=== PATIENT | male | born 1980 | race Caucasian/White ===

== ENCOUNTER 2024-10-10 01:28 | Emergency (ER) | payer OTHER, SELFPAY ==
--- NOTE | ~2024-10-10 | XR_ITS ---
CHEST RADIOGRAPH CLINICAL HISTORY: cough . COMPARISON: None available TECHNIQUE: Single portable view of the chest. FINDINGS Cardiomediastinal silhouette is unremarkable. Elevation of the right hemidiaphragm with adjacent compressive atelectasis. The remainder of the lungs are clear. IMPRESSION: No focal infiltrate or effusion. Reviewed, dictated and finalized at location A.
[2024-10-10 01:30] VITALS: BP 129/91; PULSE 106; RESP 16; TEMP 36.4; O2SAT 100
--- NOTE | 2024-10-10 01:37 | ECG_ITS ---
Test Date: 2024-10-10 01:51:27 Measurements Intervals Counce Rate: 91 P: 55 PA: 172 QRS: -14 QRSD: 83 T: 5 QT: 341 QTc: 421 Interpretive Statements SINUS RHYTHM LEFT ATRIAL ENLARGEMENT POSSIBLE LEFT VENTRICULAR HYPERTROPHY MINIMAL Q WAVES- HIGH LATERAL LEADS NONSPECIFIC T-WAVE ABNORMALITY- INFERIOR LEADS BORDERLINE ECG No previous ECG available for comparison Electronically Signed On 10-10-2024 07:34:46 CDT by Doe Lucia D.O.
--- NOTE | 2024-10-10 01:37 | ED.URI ---
HPI - URI/Sore Throat General Chief Complaint: Upper Respiratory Infection Stated Complaint: cough x 3days Time Seen by Provider: 10/10/24 01:37 Source: patient Mode of arrival: ambulatory Limitations: no limitations History of Present Illness HPI Narrative: This is a 44-year-old male who presents to the ED for chief complaint of cough x3 days. Patient states that cough is somewhat productive at times with phlegm. He has not taken any [id number] medications. States that he is having rib pain/back pain from coughing for so long. States that feel short of breath when he coughs. States that his has been sick lately. Denies fevers, chills, abdominal pain, nausea, vomiting, hemoptysis or leg swelling. Related Data Allergies Allergy/AdvReac Type Severity Reaction Status Date / Time No Known Allergies Allergy Verified 10/10/24 01:29 Review of Systems Review of Systems: All systems as dictated in HPI Exam Narrative: GENERAL: Well-appearing, well-nourished, and in no acute distress. HEAD: Normocephalic, atraumatic. EYES: PERRLA and EOMI. ENT: Nares clear, no rhinorrhea or epistaxis. Mucous membranes moist. Oropharynx without tonsillar hypertrophy exudate or other lesions. NECK: Supple. No adenopathy or masses. CHEST: No respiratory distress. Clear to auscultation. No wheezes rales or rhonchi HEART: Regular rate and rhythm. No murmur heard. Normal peripheral pulses. ABDOMEN: Soft, nontender, nondistended, normal active bowel sounds. MSK: Normal range of motion. No edema. SKIN: Warm, dry, no rash. NEURO: Alert and oriented x4. No focal deficits. PSYCH: Normal mood and affect. Course Vital Signs Vital signs: Vital Signs Temperature 97.5 F L 10/10/24 01:30 Pulse Rate 106 H 10/10/24 01:30 Respiratory Rate 16 10/10/24 01:30 Blood Pressure 129/91 H 10/10/24 01:30 Pulse Oximetry 100 10/10/24 01:30 Oxygen Delivery Room Air 10/10/24 01:30 Temperature 97.5 F L 10/10/24 01:30 Pulse Rate 89 10/10/24 02:25 Respiratory Rate 16 10/10/24 02:25 Blood Pressure 130/92 H 10/10/24 02:25 Pulse Oximetry 96 10/10/24 02:26 Oxygen Delivery Room Air 10/10/24 02:26 MDM - URI/Sore Throat MDM Narrative Medical decision making narrative: This is a 44-year-old male who presents to the ED for chief complaint of productive cough. Vitals are normal. Exam unremarkable. He is not hypoxic. No respiratory distress. Lab work does show normal white count. CMP unremarkable. Viral swabs negative. Chest x-ray shows no acute findings. Presentation consistent with viral syndrome and likely bronchitis. Patient will be discharged in stable condition. Supportive measures discussed and return precautions given. Patient is understanding and agreeable with plan for discharge with PCP follow-up. Lab Data 10/10/24 02:23 10/10/24 02:23 Labs: Lab Results 10/10/24 Range/Units 02:23 WBC 6.6 (4.5-10.0) K/mm3 RBC 4.77 (4.6-6.20) M/mm3 Hgb 13.7 L (14.0-18.0) g/dL Hct 41.6 L (42.0-52.0) % MCV 87.2 (80-100) fl MCH 28.7 (26-34) pg MCHC 32.9 (32-36) g/dl RDW 12.9 (11.5-14.5) % Plt Count 222 (150-375) k/mm3 MPV 10.2 (7.4-10.4) fl Immature Gran % (Auto) 0.3 (0-0.5) % Neut % (Auto) 69.7 (45.5-73.1) % Lymph % (Auto) 14.6 L (18.3-44.2) % [place] % (Auto) 13.4 H (2.6-8.5) % Eos % (Auto) 1.5 (0-4.4) % Baso % (Auto) 0.5 (0.2-1.2) % Lymph # (Auto) 0.96 (0.9-3.2) K/mm3 [place] # (Auto) 0.9 H (0.1-0.6) K/mm3 Eos # (Auto) 0.1 (0-0.3) K/mm3 Baso # (Auto) 0.0 (0.0-0.1) K/mm3 Abs Immat Gran (auto) 0.02 (0.00-0.031) K/mm3 Absolute Neuts (auto) 4.6 (1.3-6.7) K/mm3 Absolute Nucleated RBC 0.000 (0.0-0.012) K/mm3 Nucleated RBC % 0.0 (0.0-0.2) % Sodium 139 (137-145) mmol/L Potassium 3.8 (3.4-5.0) mmol/L Chloride 104 (98-107) mmol/L Carbon Dioxide 25 (22-30) mmol/L Anion Gap 10 (4-12) mmol/L BUN 15 (9-20) mg/dL Creatinine 0.72 (0.7-1.3) mg/dL Estim Creat Clear Calc 113 ml/min Estimated GFR > 60 (59 - ) Glucose 96 (65-110) mg/dL Calcium 9.1 (8.4-10.2) mg/dL Total Bilirubin 0.4 (0.2-1.3) mg/dL AST 31 (17-59) U/L ALT 33 (6-50) U/L Alkaline Phosphatase 100 (38-126) U/L Total Protein 7.0 (6.3-8.2) g/dL Albumin 4.4 (3.5-5.1) g/dL Influenza A (RT-PCR) Negative (Negative) Influenza B (RT-PCR) Negative (Negative) RSV (RT-PCR) Negative (Negative) SARS-CoV-2 RNA (RT-PCR) Negative (Negative) Discharge Plan Discharge Clinical Impression: Bronchitis Patient Disposition: Home Condition: Stable Instructions: Antibiotic Form Additional Instructions: Exam and imaging today are reassuring. This is probably bronchitis related to a virus. Take medications as prescribed. Symptoms should self resolve over the next couple of weeks. If you have any new or worsening symptoms please return to the ER for further evaluation. Patient Language: Danish Prescriptions: New guaifenesin 600 mg tablet extended release 12hr 600 mg PO BID PRN (Reason: cough) Qty: 30 0RF methylprednisolone [Medrol (El)] 4 mg tablets,dose pack See Rx Instructions .ROUTE .COMPLEX Qty: 21 0RF Rx Instructions: for 6 days albuterol sulfate [Ventolin HFA] 90 mcg/actuation HFA aerosol inhaler 2 puff inhalation QID PRN (Reason: shortness of breath or wheezing) Qty: 6.7 0RF Follow-up/Referrals: Aaron,MD Feli [Primary Care Provider] - Time of Disposition: 03:24
[2024-10-10 02:25] VITALS: BP 130/92; PULSE 89; RESP 16; O2SAT 99
[2024-10-10 02:26] VITALS: O2SAT 96
[2024-10-10] MEDS: ACETAMINOPHEN/CODEINE (*CRX) 300/30 MG TABLET 1 TAB PO (02:36)
[2024-10-10] MEDS: guaiFENesin 12 HR 600 MG TABCR PO (02:37)
[2024-10-10 02:44] LABS: Basophils Percent Auto 0.5 % (0.2-1.2); Eosinophils Absolute Auto 0.1 K/mm3 (0-0.3); Eosinophils Percent Auto 1.5 % (0-4.4); Hematocrit 41.6 % (42.0-52.0); Hemoglobin 13.7 g/dL (14.0-18.0); Immature Granulocyte Absolute 0.02 K/mm3 (0.00-0.031); Immature Granulocyte Percent A 0.3 % (0-0.5); Lymphocytes Absolute Auto 0.96 K/mm3 (0.9-3.2); Lymphocytes Percent Auto 14.6 % (18.3-44.2); Mean Corpuscular HGB Conc 32.9 g/dl (32-36); Mean Corpuscular Hemoglobin 28.7 pg (26-34); Mean Corpuscular Volume 87.2 fl (80-100); Mean Platelet Volume 10.2 fl (7.4-10.4); Monocytes Absolute Auto 0.9 K/mm3 (0.1-0.6); Monocytes Percent Auto 13.4 % (2.6-8.5); Neutrophils Absolute Auto 4.6 K/mm3 (1.3-6.7); Neutrophils Percent Auto 69.7 % (45.5-73.1); Platelet Count Result 222 k/mm3 (150-375); Red Blood Count 4.77 M/mm3 (4.6-6.20); Red Cell Distribution Width 12.9 % (11.5-14.5); White Blood Count 6.6 K/mm3 (4.5-10.0)
[2024-10-10 03:02] LABS: Alanine Aminotransferase 33 U/L (6-50); Albumin Level 4.4 g/dL (3.5-5.1); Alkaline Phosphatase 100 U/L (38-126); Anion Gap 10 mmol/L (4-12); Aspartate Amino Transferase 31 U/L (17-59); Bilirubin,Total 0.4 mg/dL (0.2-1.3); Blood Urea Nitrogen 15 mg/dL (9-20); Calcium 9.1 mg/dL (8.4-10.2); Carbon Dioxide 25 mmol/L (22-30); Chloride 104 mmol/L (98-107); Estimated CRCL calculation 113 ml/min; Estimated Glomerular Filt Rate > 60; Glucose 96 mg/dL (65-110); Potassium 3.8 mmol/L (3.4-5.0); Sodium 139 mmol/L (137-145)
[2024-10-10 03:19] LABS: Influenza A QL RT-PCR Negative (Negative); Influenza B QL RT-PCR Negative (Negative); RSV RNA, RT-PCR Negative (Negative); SARS-CoV-2 RNA PCR Negative (Negative)
[2024-10-10 03:31] VITALS: BP 124/85; PULSE 87; RESP 15; O2SAT 93
--- OUTSIDE RECORDS SUMMARY | 2024-10-10 03:36 | XMS_ITS | Clinical Summary ---
Author Organization [facility] Address [address] [place] [id number] Care Team Providers [employer] Account Executive Name Role Phone Feli Walker MD Primary Care Provider [phone] Allergies No known active allergies Medications sertraline (ZOLOFT) 100 MG tabletIndicatio ns:Irritable behavior Take 1 tablet (100 mg total) by mouth daily. 90 tablet 3 05/08/2024 Active zolpidem (AMBIEN) 10 MG tabletIndicatio ns:Primary insomnia TAKE 1 TABLET NIGHTLY NEEDED FOR SLEEP 90 tablet 1 05/08/2024 Active Active Problems Problem Noted Date Diagnosed Date Primary insomnia 01/20/2021 Encounters Date Type Department Care Team Description 09/23/2024 Scan [facility] SRVCS Scanned, Doc [facility] from Last 3 Months Immunizations Immunization Administration Dates Next Due PFIZER COVID-19 (12+) MRNA, LNP-S, PF, BG-SUCROSE, 30 MCG/0.3 ML (COMIRNATY) 05/08/2024 PFIZER COVID-19 ([place] CAP), MRNA, LNP-S, PF, 30 MCG/0.3 ML BG-SUCROSE, IM 06/28/2021 PFIZER COVID-19 (ORIGINAL FO RMULATION, PURPLE CAP) mRNA, LNP-S, PF, 30 MCG/0.3 ML DOSE 10/05/2020,09/14/2020 Tdap (Boostrix) 12/14/2015 Family History Medical History Relation Comments Multiple Sclerosis Sister Relation Status Comments Father Alive Mother Alive Sister Alive Social History Tobacco Use Types Packs/Day Years Used Date Smoking Tobacco: Never Smokeless Tobacco: Never Tobacco Cessation:Counseling Given: No Alcohol Use Standard Drinks/Week Comments Yes 2 (1 standard drink = 0.6 oz pur e alcohol) Rare PHQ-2 Answer Date Recorded Patient Health Questionnaire-2 Score 0 05/08/2024 Sex and Gender Information Value Date Recorded Sex Assigned at Not on file Legal Sex Male 3:51 PM CDT Gender Identity Male 06/27/2021 4:49 PM CLINICAL INFORMATICIST Sexual Orientation Straight 06/27/2021 4: 49 PM CLINICAL INFORMATICIST Last Filed Vital Signs Vital Sign Reading Time Taken Comments Blood Pressure 132/90 05/08/2024 9:45 AM CLINICAL INFORMATICIST Pulse 67 05/08/2024 9:28 AM CLINICAL INFORMATICIST Temperature 35.5 C (95.9 F) 05/08/2024 9:28 AM CLINICAL INFORMATICIST Respiratory Rate 14 05/08/2024 9:28 AM CLINICAL INFORMATICIST Oxygen Saturation 99% 05/08/2024 9:28 AM CLINICAL INFORMATICIST Inhaled Oxygen Concentration - - Weight 76.2 kg (168 lb) 05/08/2024 9:28 AM CLINICAL INFORMATICIST Height 177.8 cm (5' 10 ) 05/08/2024 9:28 AM CLINICAL INFORMATICIST Body Mass Index 24.11 05/08/2024 9:28 AM CLINICAL INFORMATICIST Plan of Treatment Upcoming Encounters Date Type Department Care Team (Late st Contact Info) Description 10/29/2024 7:00 AM CDT Laboratory Only [facility] [address] [phone] 11/05/2024 3:20 PM CDT Office Visit [facility] [address] [address] [place] [address] [place] [facility]. [address] [place] [id number] Health Maintenance Due Date Last Done Comments Hepatitis B Vaccines (1 of 3 - 19+ 3-dose series) 01/21/1999 Annual Physical 01/20/2022 01/20/2021 PHQ-2 (Physician [place]) 06/17/2024 05/08/2024 DTaP, Tdap and Td Vaccines (2 - Td or Tdap) 12/13/2025 12/14/2015 Hepatitis C Completed 10/19/2021 COVID-19 Vaccine Completed 05/08/2024, 05/2022, 10/05/2020, Additional history exists HPV Vaccines Aged Out No longer eligi ble based on patient's age to complete this topic Meningococcal B Vaccine Aged Out No l onger eligible based on patient's age to complete this topic Meningococcal Vaccine Aged Out No diana lisa eligible based on patient's age to complete this topic Pneumococcal Vaccine: Pediatrics (0 to 5 Years) and At-Risk Patients (6 to 49 Years) Aged Out No longer eligible based on patient's age to complete this topic RSV Immunizations Under 20 Months Aged Out No longer eligible based on patient's age to complete this topic Procedures Procedure Name Priority Date/Time Associated Diagnosis Comments HEPATITIS C ANTIBODY Routine 10/19/2021 10:46 AM CDT Need for hepatitis C screening test from Last 3 Months or Most Recently Relevant to Health Maintenance Results * HEPATITIS C AB ([facility] ONLY) (10/19/2021 10:46 AM CDT) HEPATITIS C AB NON-REACTI VE NON-REACTI VE 10/19/2021 7:59 PM CDT [facility] 10/19/2021 10:4 6 AM CDT Feli Walker MD LABORATORY Final Result [facility] [address] [place] [address], [place] [phone] from Last 3 Months or Most Recently Relevant to Health Maintenance Insurance [facility] Care Teams Commercial Lines Account Executive Relationship Specialty [place] [id number] [address] [place] [id number] PCP - General FAMILY PRACTICE 01/16/21
[2024-10-10 03:47] VITALS: BP 129/86; PULSE 82; RESP 13; TEMP 36.9; O2SAT 97
[2024-10-10 03:48] VITALS: BP 129/86; PULSE 82; RESP 13; TEMP 36.9; O2SAT 97
== END 2024-10-10 03:51 | disposition home or self-care (01) ==
LOC: ANHED 03:34
PROVIDERS: Emergency Provider Physician Assistant; PCP Family Medicine
DX: J40 Bronchitis, not specified as acute or chronic (principal); Z20.822 Contact with and (suspected) exposure to COVID-19; R94.31 Abnormal electrocardiogram [ECG] [EKG]
CPT/HCPCS: 36415; 71045; 80053; 85025; 87637; 93005; 99283; A9270